=== PATIENT | male | born 1945 | race Caucasian/White ===

== ENCOUNTER 2018-05-11 15:25 | Inpatient (IN) ==
[2018-05-11] MEDS ORDERED: Adenosine Inj 6 MG/2 ML Syringe IV.PUSH ONE ×2 (15:56→15:57)
--- NOTE | 2018-05-11 16:10 | ED ---
HPI General Chief Complaint: Chest Pain Stated Complaint: Incrased heart rate Time Seen by Provider: 05/11/18 15:46 Source: patient and family Mode of arrival: wheelchair Limitations: no limitations History of Present Illness HPI narrative: 73-year-old male the presents to the ED for evaluation of rapid heart rate. Patient apparently took his pulse today and it was very high. He called his doctor Dr. Trevizo and put him on the office. He has significant history of A. fib and RVR. Per patient he has no chest pain or shortness of breath. Per patient he has no symptoms. Apparently when he went to Dr. Saravia office to check his heart rate he was in SVT of 180. Patient was told to come here for evaluation. Patient currently denies any symptoms. He is on the monitor and his heart rate is in the 180s continuously. He states that he has had multiple ablations in the past. He follows with in the [facility] as well to help with his rhythm. Per patient currently he is in no medication other than Eliquis. He was discontinued from his metoprolol as the thought that he did not need anymore. Per patient this was sometime ago. Per patient he is always hypotensive. No other medical issues. Related Data Home Medications Medication Instructions Recorded Confirmed apixaban [Eliquis] 5 mg PO BID 05/11/18 05/11/18 omeprazole magnesium [Prilosec OTC] 20 mg PO DAILY 05/11/18 05/11/18 Allergies Allergy/AdvReac Type Severity Reaction Status Date / Time No Known Allergies Allergy Verified 05/11/18 17:15 Review of Systems ROS: all other systems reviewed are negative PMFSH History History Provided By: Patient and Family Member Medical History Medical History Afib (Acute) Fluttering heart (Acute) Tachycardia (Acute) Surgical History Surgical History S/P ablation of atrial fibrillation (Acute) Family History Family History Other Osteoarthritis Social History Social History Substance History: No History of Abuse Second Hand Smoke Exposure: No Smoking Status: Never smoker How Often Do You Have a Drink Containing Alcohol: Monthly or less Recent Travel in [facility] within the Last 8 Weeks: No Recent Out of Country Travel within the Last 8 Weeks: No Exam Narrative Exam Narrative: GENERAL: Well-appearing SKIN: Focused skin assessment warm/dry. HEAD: Atraumatic. Normocephalic. EYES: Pupils equal and round. No scleral icterus. No injection or drainage. ENT: No nasal bleeding or discharge. Mucous membranes pink and moist. Tongue is midline. No uvula deviation. NECK: Trachea midline. No JVD. CARDIOVASCULAR: Tachycardic rate and rhythm. No murmur appreciated. RESPIRATORY: No accessory muscle use. Clear to auscultation. Breath sounds equal bilaterally. GASTROINTESTINAL: Abdomen soft, non-tender, nondistended. Hepatic and splenic margins not palpable. MUSCULOSKELETAL: No obvious deformities. No clubbing. No cyanosis. No edema. Full range of motion of the upper and lower extremities bilaterally. 2+ pulses bilaterally. NEUROLOGICAL: Awake and alert. No obvious cranial nerve deficits. Motor grossly within normal limits. Normal speech. PSYCHIATRIC: Appropriate mood and affect; insight and judgment normal. Course Initial Documented Vital Signs Pulse Rate 92 H 05/11/18 15:31 Respiratory Rate 18 05/11/18 15:31 Blood Pressure 114/67 05/11/18 15:31 Pulse Oximetry 99 05/11/18 15:31 Last Documented Vital Signs Temperature 98.1 F 05/11/18 17:02 Pulse Rate 170 H 05/11/18 17:12 Respiratory Rate 16 05/11/18 16:21 Blood Pressure 95/51 L 05/11/18 16:21 Pulse Oximetry 98 05/11/18 17:13 Critical Care Time Critical Care Time: Yes Total Critical Care Time: 31 Attestation: Aggregate critical care time was 31 minutes. Time to perform other separately billable procedures was not included in the critical care time. My time did not include minutes spent treating any other patients simultaneously or on activities that did not directly contribute to the patient's treatment. The services I provided to this patient were to treat and/or prevent clinically significant deterioration that could result in: AK, shock, I provided critical care services requiring my management, as noted below: Chart data review, documentation time, medication orders and management, vital sign assessments/reviewing monitor data, ordering and reviewing lab tests, ordering and interpreting/reviewing x-rays and diagnostic studies, care of the patient and discussion of the patient with the admitting physicians. Medical Decision Making ERWIN Attestation ERWIN supervised visit: Yes Attestation: I, Dr. bell, have reviewed the advance practice practitioner's documentation and am in agreement, met with the patient face to face, made the diagnosis, and the medical decision making was done by me. *My assessment and Findings: 73 y/o male presents with tachycardia in the 180s that appeared to be SVT. With adenosine it looks more a flutter. He was given 10 of Cardizem given after the adenosine his heart rate went back up and that helped lower his heart rate into the 130s. If his blood pressure stays stable will repeat another 10 of Cardizem and placed on a Cardizem drip. He will need to be admitted for further care after initial testing. I was at bedside for administration of adenosine and initial Cardizem MDM Narrative Medical decision making narrative: Patient tolerated procedure well but unfortunately his heart rate continued in the 180s 160s. She was given 6 mg of adenosine IV.73-year-old male the presents to the ED for evaluation of tachycardia. Patient was properly examined and was found to have signs and symptoms initially what appeared to be SVT in the 180s. EKG was done here and did show what appears to be SVT. Labs and imaging were ordered. I had my attending Dr. Bell immediately evaluate the patient. She agrees to give adenosine 6 mg. This was given with the patient on the monitor and pads put in place on his chest. Adenosine unfortunately not work. Patient heart rate did improve a little bit into the 160s but with the end of the EKG and it showed that his heart rate appears to be more A. fib RVR. Patient was given Cardizem with improvement of symptoms and tachyarrhythmia. He was given another dose of Cardizem 10 mg. He was put on the drip. Labs and imaging were essentially unremarkable other than for elevated troponin. This time recommendations for admission for further evaluation and treatment. Patient agrees with this plan. Case discussed with Dr. Tan by my attending who agrees that patient can be admitted to his service. Medical Screen Exam Complete: Yes Emergency Medical Condition: Yes Differential Diagnosis Differential Diagnosis: SVT versus atrial fibrillation RVR versus arrhythmia versus chest pain versus ACS Medical Records Medical records reviewed: Yes I reviewed the patient's medical records. Lab Data Lab results reviewed: Yes I reviewed the patient's lab results. Lab results narrative: Troponin elevated Result diagrams: 05/11/18 16:05 05/11/18 16:05 Lab Results 05/11/18 05/11/18 05/11/18 Range/Units 16:05 16:05 16:05 WBC 7.9 (4.0-11.0) th/mm3 RBC 5.49 (4.50-5.90) mil/mm3 Hgb 15.6 (13.0-17.0) gm/dL Hct 47.1 (39.0-51.0) % MCV 85.6 (80.0-100.0) fL MCH 28.5 (27.0-34.0) pg MCHC 33.3 (32.0-36.0) % RDW 14.2 (11.6-17.2) % Plt Count 190 (150-450) th/mm3 MPV 8.4 (7.0-11.0) fL Neut % (Auto) 56.9 (16.0-70.0) % Lymph % (Auto) 31.9 (9.0-44.0) % [place] % (Auto) 9.6 H (0.0-8.0) % Eos % (Auto) 1.1 (0.0-4.0) % Baso % (Auto) 0.5 (0.0-2.0) % Neut # (Auto) 4.5 (1.8-7.7) th/mm3 Lymph # (Auto) 2.5 (1.0-4.8) th/mm3 [place] # (Auto) 0.8 (0.0-0.9) th/mm3 Eos # (Auto) 0.1 (0.0-0.4) th/mm3 Baso # (Auto) 0.0 (0.0-0.2) th/mm3 WBC Differential . Differential Comment Auto diff final PT 11.1 (9.8-11.6) sec INR 1.1 Ratio APTT 29.1 (24.3-30.1) sec Sodium 138 (136-145) meq/L Potassium 4.0 (3.5-5.1) meq/L Chloride 105 (98-107) meq/L Carbon Dioxide 26.2 (21.0-32.0) meq/L Anion Gap 7 (5-15) meq/L BUN 13 (7-18) mg/dL Creatinine 1.02 (0.60-1.30) mg/dL Estimated GFR 72 L (>89) mL/min Random Glucose 94 (74-106) mg/dL Calcium 8.6 (8.5-10.1) mg/dL Magnesium 2.1 (1.5-2.5) mg/dL Total Bilirubin 0.6 (0.2-1.0) mg/dL AST 19 (15-37) U/L ALT 22 (12-78) U/L Alkaline Phosphatase 94 (45-117) U/L Total Creatine Kinase 61 (39-308) U/L Troponin I 0.14 H (0.02-0.05) ng/mL Total Protein 7.0 (6.4-8.2) g/dL Albumin 3.6 (3.4-5.0) g/dL Imaging Data Attestation: I personally reviewed and interpreted this imaging study as follows : Radiologist's impression: Chest X-Ray 05/11/18 16:05 CONCLUSION: 1. No acute intrathoracic abnormality. 2. Old right posterior fourth rib fracture. ECG Data Attestation: I personally reviewed and interpreted this ECG as follows: Interpretation: EKG initially showed SVT and the heart rates in the 180s. Second EKG show what appears to be atrial fibrillation with RVR with a ventricular rate of 138 bpm. No sign of ST elevation or ischemia at this time. Discharge Plan Physicians Team ED Provider: Kassie Bell ED Midlevel Provider: Yusuf Wilhelm Primary Care Provider: Deandre Soliz Rxs /Orders / Referrals /Forms Prescriptions: No Action omeprazole magnesium [Prilosec OTC] 20 mg Tablet,Delayed Release (Dr/Ec) 20 mg PO DAILY RF: 0 apixaban [Eliquis] 5 mg Tablet 5 mg PO BID RF: 0 Discharge Interventions Interventions: Vital Signs Last Done: 05/11/18 15:53 Status ED Status: Admitted Patient
[2018-05-11] MEDS ORDERED: dilTIAZem Inj 125 MG in Sodium Chlor 0.9% Inj 100 ML IV.CONT PRN (16:12)
[2018-05-11 16:38] LABS: Baso % (Auto) 0.5 % (0.0-2.0); Eos # (Auto) 0.1 th/mm3 (0.0-0.4); Eos % (Auto) 1.1 % (0.0-4.0); Hematocrit 47.1 % (39.0-51.0); Hemoglobin 15.6 gm/dL (13.0-17.0); Lymph # (Auto) 2.5 th/mm3 (1.0-4.8); Lymph % (Auto) 31.9 % (9.0-44.0); Mean Corpuscular HGB Conc 33.3 % (32.0-36.0); Mean Corpuscular Hemoglobin 28.5 pg (27.0-34.0); Mean Corpuscular Volume 85.6 fL (80.0-100.0); Mean Platelet Volume 8.4 fL (7.0-11.0); Mono # (Auto) 0.8 th/mm3 (0.0-0.9); Mono % (Auto) 9.6 % (0.0-8.0); Neut # (Auto) 4.5 th/mm3 (1.8-7.7); Neut % (Auto) 56.9 % (16.0-70.0); Platelet Count 190 th/mm3 (150-450); Red Blood Count 5.49 mil/mm3 (4.50-5.90); Red Cell Distribution Width 14.2 % (11.6-17.2); White Blood Count 7.9 th/mm3 (4.0-11.0)
--- NOTE | 2018-05-11 16:43 | XR ---
EXAM DATE: 05/11/2018 4:05 PM EDT AGE/SEX: 73 years / Male INDICATIONS: Elevated heart rate. CLINICAL DATA: This is the patient's initial encounter. Patient reports that signs and symptoms have been present for 1 day and indicates a pain score of 0/10. MEDICAL/SURGICAL HISTORY: . A-fib. . Heart ablations. COMPARISON: [facility] [place], CHEST SINGLE AP, 08/30/2015. . FINDINGS: 2 portable frontal views of the chest show the heart to be normal in size. No pulmonary mass. Lungs a re clear. No infiltrate, effusion, or pneumothorax. Bony structures and old right posterior fourth ri b fracture. Some callus formation noted. CONCLUSION: 1. No acute intrathoracic abnormality. 2. Old right posterior fourth rib fracture. Electronically signed by: Gavin Jiang MD 05/11/2018 4:42 PM EDT
[2018-05-11 16:48] LABS: Activated Partial Thrombo Time 29.1 sec (24.3-30.1); INR 1.1 Ratio; Prothrombin Time 11.1 sec (9.8-11.6)
[2018-05-11 16:55] LABS: Alanine Aminotransferase 22 U/L (12-78); Albumin 3.6 g/dL (3.4-5.0); Anion Gap 7 meq/L (5-15); Aspartate Aminotransferase 19 U/L (15-37); Blood Urea Nitrogen 13 mg/dL (7-18); Calcium 8.6 mg/dL (8.5-10.1); Carbon Dioxide 26.2 meq/L (21.0-32.0); Chloride 105 meq/L (98-107); Glomerular Filtration Rate 72 mL/min (>89); Glucose,Random 94 mg/dL (74-106); Magnesium 2.1 mg/dL (1.5-2.5); Sodium 138 meq/L (136-145)
[2018-05-11 16:59] LABS: Alkaline Phosphatase 94 U/L (45-117); Troponin I 0.14 ng/mL (0.02-0.05)
[2018-05-11 17:05] LABS: Creatine Kinase 61 U/L (39-308)
--- NOTE | 2018-05-11 17:28 | P.HPIM ---
History of Present Illness Primary Care Physician: PROVIDER NON STAFF History of Present Illness: Mr. Bonilla is a 73-year-old male. He has a past history of multiple episodes of A. fib RVR. He has had approximately 7 ablations in the past. He says the most recent ablation was working well but this morning he noticed some tachycardia symptoms which for him is just a flutter. No shortness of breath, no chest pain, no dizziness. He checked his pulse and it was rapid going from 160-180. He denies any nausea vomiting or chest pain. Cardizem is provided in the ER via a bolus and this only worked temporarily. Cardizem drip is being initiated. No other complaints from the patient tonight. - Diagnosis (1) Atrial fibrillation with RVR Inpatient Certification: I certify that the inpatient services were ordered in accordance with Medicare regulations governing the order. This includes certification that hospital inpatient services are reasonable and necessary and in the case of services not specified as inpatient-only under 42 CFR 419.22(n), that they are appropriately provided as inpatient services in accordance to with the 2-midnight benchmark under 43 CFR 412.3(e) Estimated Total Length of Stay (Days): 2 Plans for Post Hospital Care: Home Review of Systems Constitutional: No fevers, no chills no night sweats, no fatigue, no weakness Eyes: No eye pain, no blurry vision, no loss of vision ENT: No sore throat, no ear pain, no rhinorrhea Cardiovascular: No chest pain, tachycardia, palpitations, no shortness of breath , no syncope Respiratory: No wheezing, no cough, no shortness of breath Gastrointestinal: No abdominal pain, no black tarry stools, no bright red blood per rectum, no vomiting, no diarrhea Musculoskeletal: No joint pain, no muscle cramps, no stiffness Integumentary: No rash, no ulcers, no drainage Neurologic: No sensory loss, no loss of motor function, no dizziness Psychiatric: No behavioral changes, no hallucinations, no suicidal ideations PMFSH - History History Provided By: Patient - Medical History Medical History: Medical History (Last Reviewed 05/11/18 @ 17:32 by GURU Gallardo) Afib Fluttering heart Tachycardia - Surgical History Surgical History: Surgical History (Last Reviewed 05/11/18 @ 17:32 by GURU Gallardo) S/P ablation of atrial fibrillation - Family History Family History: Family History (Last Updated 05/11/18 @ 17:26 by Leo Tan MD) Other Osteoarthritis - Tobacco History Second Hand Smoke Exposure: No Smoking Status: Never smoker - Alcohol History How Often Do You Have a Drink Containing Alcohol: Monthly or less - Substance Use History Substance History: No History of Abuse - Travel History Recent Travel in the [place] Within the Last 8 Weeks: No Recent Travel Out of the Country Within the Last 8 Weeks: No - Immunization History Tetanus Immunization: Unsure Medications and Allergies Active Medications: Active Medications Al Hydroxide/Mg Hydroxide (Milk Of Mark Liq) 30 ml PO Q12H PRN PRN Reason: Mild Constipation Apixaban (Eliquis) 5 mg PO BID BILLIE Diltiazem HCl 125 mg/ Sodium (Chloride) 125 mls @ 5 mls/hr IV.CONT TITRATE PRN ; Protocol PRN Reason: Per Protocol Sodium Chloride (Ns Inj) 1,000 mls @ 75 mls/hr IV.CONT .[id number] BILLIE Nitroglycerin (Nitrostat Sl) 0.4 mg SL Q5M PRN PRN Reason: CHEST PAIN Ondansetron HCl (Zofran Inj) 4 mg IV.PUSH Q6H PRN PRN Reason: NAUSEA OR VOMITING Sodium Chloride (Ns Flush) 2 ml IV.FLUSH UNSCH PRN PRN Reason: FLUSH AFTER USING IV ACCESS Allergies Allergy/AdvReac Type Severity Reaction Status Date / Time No Known Allergies Allergy Verified 05/11/18 17:15 Home Medications Medication Instructions Recorded Confirmed Type apixaban [Eliquis] 5 mg PO BID 05/11/18 05/11/18 History omeprazole magnesium [Prilosec OTC] 20 mg PO DAILY 05/11/18 05/11/18 History Exam Vital signs: Vital Signs 05/11/18 15:31 05/11/18 15:53 05/11/18 16:00 Temperature Pulse Rate 92 H 186 H 165 H Respiratory Rate 18 18 Blood Pressure 114/67 185/114 H Pulse Oximetry 99 98 05/11/18 16:06 05/11/18 16:11 05/11/18 16:21 Temperature Pulse Rate 61 132 H 91 H Respiratory Rate 16 16 16 Blood Pressure 110/64 115/59 L 95/51 L Pulse Oximetry 98 97 94 L 05/11/18 17:02 05/11/18 17:12 05/11/18 17:13 Temperature 98.1 F Pulse Rate 170 H Respiratory Rate Blood Pressure Pulse Oximetry 98 Intake & Output 05/10/18 05/11/18 05/11/18 18:59 06:59 18:59 Weight 101.151 kg Narrative: GENERAL: NAD, A&Ox3 HEAD: Normocephalic. NECK: Supple, trachea midline. No lymphadenopathy. EYES: No scleral icterus. No injection or drainage. CARDIOVASCULAR: Tachycardia, irregularly irregular rhythm without murmurs, gallops, or rubs. RESPIRATORY: Breath sounds equal bilaterally. No accessory muscle use. GASTROINTESTINAL: Abdomen soft, non-tender, nondistended. MUSCULOSKELETAL: No cyanosis, or edema. SKIN: Warm and dry. NEURO: No focal neurological deficits. Results - Labs CBC & Chem 7: 05/11/18 16:05 05/11/18 16:05 Labs: Short CBC 05/11/18 Range/Units 16:05 WBC 7.9 (4.0-11.0) th/mm3 Hgb 15.6 (13.0-17.0) gm/dL Hct 47.1 (39.0-51.0) % Plt Count 190 (150-450) th/mm3 BMP 05/11/18 16:05 Sodium 138 Potassium 4.0 Chloride 105 Carbon Dioxide 26.2 BUN 13 Creatinine 1.02 Calcium 8.6 Cardiac Enzymes 05/11/18 Range/Units 16:05 Total Creatine Kinase 61 (39-308) U/L Troponin I 0.14 H (0.02-0.05) ng/mL Liver Function 05/11/18 Range/Units 16:05 Total Bilirubin 0.6 (0.2-1.0) mg/dL AST 19 (15-37) U/L ALT 22 (12-78) U/L Alkaline Phosphatase 94 (45-117) U/L Albumin 3.6 (3.4-5.0) g/dL - Imaging Impressions Chest X-Ray 05/11/18 16:05 CONCLUSION: 1. No acute intrathoracic abnormality. 2. Old right posterior fourth rib fracture. Caprini VTE Risk Assessment Caprini VTE Risk Assessment: Moderate/High Risk (score >= 2) Caprini Risk Assessment Model: Point Value = 1 Point Value = 2 Point Value = 3 Point Value = 5 Age 41-60 Minor surgery BMI > 25 kg/m2 Swollen legs Varicose veins or History of unexplained or recurrent spontaneous Oral contraceptives or hormone replacement Sepsis (< 1 month) Serious lung disease, including pneumonia (< 1 month) Abnormal pulmonary function Acute myocardial infarction Congestive heart failure (< 1 month) History of inflammatory bowel disease Medical patient at bed rest Age 61-74 Arthroscopic surgery Major open surgery (> 45 min) Laparoscopic surgery (> 45 min) Malignancy Confined to bed (> 72 hours) Immobilizing plaster cast Central venous access Age >= 75 History of VTE Family history of VTE Factor V Leiden Prothrombin [id number] Lupus anticoagulant Anticardiolipin antibodies Elevated serum homocysteine Heparin-induced thrombocytopenia Other congenital or acquired thrombophilia Stroke (< 1 month) Elective arthroplasty Hip, pelvis, or leg fracture Acute spinal cord injury (< 1 month) Prophylaxis Regimen: Total Risk Factor Score Risk Level Prophylaxis Regimen 0-1 Low Early ambulation 2 Moderate Order ONE of the following: *Sequential Compression Device (SCD) *Heparin 5000 units SQ BID 3-4 Higher Order ONE of the following medications: *Heparin 5000 units SQ TID *Enoxaparin/Lovenox 40 mg SQ daily (WT < 150 kg, CrCl > 30 mL/min) *Enoxaparin/Lovenox 30 mg SQ daily (WT < 150 kg, CrCl > 10-29 mL/min) *Enoxaparin/Lovenox 30 mg SQ BID (WT < 150 kg, CrCl > 30 mL/min) AND/OR *Sequential Compression Device (SCD) 5 or more Highest Order ONE of the following medications: *Heparin 5000 units SQ TID (Preferred with Epidurals) *Enoxaparin/Lovenox 40 mg SQ daily (WT < 150 kg, CrCl > 30 mL/min) *Enoxaparin/Lovenox 30 mg SQ daily (WT < 150 kg, CrCl > 10-29 mL/min) *Enoxaparin/Lovenox 30 mg SQ BID (WT < 150 kg, CrCl > 30 mL/min) AND *Sequential Compression Device (SCD) Assessment and Plan - Assessment (1) Atrial fibrillation with RVR Code(s): I48.91 - Unspecified atrial fibrillation Status: Acute - Plan 73-year-old male admitted secondary to A. fib RVR A. fib RVR chronic atrial fibrillation Cardizem IV drip initiated as a treatment. Continue Eliquis Follow troponins Follow creatine kinase Serial EKGs Follow on telemetry Cardiology consulted Gastroesophageal reflux disease PPI on hold for now Follow clinically DVT prophylaxis Eliquis
[2018-05-11] MEDS: Sod Chloride 0.9% Inj 1,000 ML IV.CONT SCH (17:36)
[2018-05-11] MEDS ORDERED: Heparin - SQ 10,000 UNITS/ML Vial SQ SCH (21:00)
[2018-05-11 23:05] LABS: Troponin I 0.21 ng/mL (0.02-0.05)
[2018-05-12 04:38] LABS: Troponin I 0.2 ng/mL (0.02-0.05)
[2018-05-12] MEDS: Sod Chloride 0.9% Inj 1,000 ML IV.CONT SCH (08:47)
[2018-05-12] MEDS: dilTIAZem CD 120 MG Capsule PO SCH (09:18)
[2018-05-12] MEDS: Pantoprazole Sodium 20 MG DR Tablet PO SCH ×2 (09:56→21:29)
--- NOTE | 2018-05-12 10:20 | P.PNIM ---
Subjective Interval history: Patient had returned to sinus rhythm overnight. Due to low blood pressures Cardizem drip had to be stopped at approximately 4 AM. Is resumed on p.o. Cardizem at approximately 9 AM. When the patient walked to use the bathroom he had a recurrence of A. fib RVR. This has resolved by the time I am seeing him this morning. No complaints from patient. Physical Exam Vital signs: Vital Signs 05/11/18 15:31 05/11/18 15:53 05/11/18 16:00 Temperature Pulse Rate 92 H 186 H 165 H Respiratory Rate 18 18 Blood Pressure 114/67 185/114 H Pulse Oximetry 99 98 05/11/18 16:06 05/11/18 16:11 05/11/18 16:21 Temperature Pulse Rate 61 132 H 91 H Respiratory Rate 16 16 16 Blood Pressure 110/64 115/59 L 95/51 L Pulse Oximetry 98 97 94 L 05/11/18 17:02 05/11/18 17:12 05/11/18 17:13 Temperature 98.1 F Pulse Rate 170 H Respiratory Rate Blood Pressure Pulse Oximetry 98 05/11/18 17:36 05/11/18 18:26 05/11/18 19:15 Temperature Pulse Rate 123 H 144 H 92 H Respiratory Rate 18 18 18 Blood Pressure 110/57 L 113/63 104/59 L Pulse Oximetry 99 97 99 05/11/18 19:53 05/11/18 20:00 05/12/18 00:00 Temperature 98.1 F 98.1 F Pulse Rate 120 H 91 H 90 Respiratory Rate 16 16 Blood Pressure 104/58 L 91/57 L 103/57 L Pulse Oximetry 98 98 05/12/18 03:30 05/12/18 04:00 05/12/18 07:00 Temperature 98.1 F 97.7 F Pulse Rate 90 91 H Respiratory Rate 16 16 Blood Pressure 97/52 L 104/57 L 109/60 Pulse Oximetry 98 97 05/12/18 07:57 05/12/18 08:00 05/12/18 09:00 Temperature Pulse Rate 135 H 166 H 120 H Respiratory Rate Blood Pressure Pulse Oximetry 98 Intake & Output 05/11/18 05/12/18 05/12/18 18:59 06:59 18:59 Intake Total 840 / 840 1062.1 / 1062.1 Output Total 560 / 560 Balance 280 / 280 1062.1 / 1062.1 Weight 101.151 kg 101 kg Intake: IV 1062.1 / 1062.1 NS Inj 1,000 ML @ 75 mls/hr IV. 937.1 / 937.1 CONT .[id number] [facility] Rx#:[id number] Cardizem Inj 125 MG In NS Inj 125 / 125 100 ML @ 5 MG/HR 5 mls/hr IV. CONT TITRATE PRN Rx#:[id number] Oral 840 / 840 Output: Urine 560 / 560 Other: Date of Last Bowel Movement 05/10/18 05/11/18 Narrative: GENERAL: NAD, A&Ox3 HEAD: Normocephalic. NECK: Supple, trachea midline. No lymphadenopathy. EYES: No scleral icterus. No injection or drainage. CARDIOVASCULAR: Tachycardia, irregularly irregular rhythm without murmurs, gallops, or rubs. RESPIRATORY: Breath sounds equal bilaterally. No accessory muscle use. GASTROINTESTINAL: Abdomen soft, non-tender, nondistended. MUSCULOSKELETAL: No cyanosis, or edema. SKIN: Warm and dry. NEURO: No focal neurological deficits. Results - Labs CBC & Chem 7: 05/11/18 16:05 05/11/18 16:05 Laboratory Results - last 24 hr 05/11/18 05/11/18 05/11/18 16:05 16:05 16:05 WBC 7.9 RBC 5.49 Hgb 15.6 Hct 47.1 MCV 85.6 MCH 28.5 MCHC 33.3 RDW 14.2 Plt Count 190 MPV 8.4 Neut % (Auto) 56.9 Lymph % (Auto) 31.9 [place] % (Auto) 9.6 H Eos % (Auto) 1.1 Baso % (Auto) 0.5 Neut # (Auto) 4.5 Lymph # (Auto) 2.5 [place] # (Auto) 0.8 Eos # (Auto) 0.1 Baso # (Auto) 0.0 WBC Differential . Differential Comment Auto diff final PT 11.1 INR 1.1 APTT 29.1 Sodium 138 Potassium 4.0 Chloride 105 Carbon Dioxide 26.2 Anion Gap 7 BUN 13 Creatinine 1.02 Estimated GFR 72 L Random Glucose 94 Calcium 8.6 Magnesium 2.1 Total Bilirubin 0.6 AST 19 ALT 22 Alkaline Phosphatase 94 Total Creatine Kinase 61 Troponin I 0.14 H Total Protein 7.0 Albumin 3.6 05/11/18 05/12/18 22:13 03:47 WBC RBC Hgb Hct MCV MCH MCHC RDW Plt Count MPV Neut % (Auto) Lymph % (Auto) [place] % (Auto) Eos % (Auto) Baso % (Auto) Neut # (Auto) Lymph # (Auto) [place] # (Auto) Eos # (Auto) Baso # (Auto) WBC Differential Differential Comment PT INR APTT Sodium Potassium Chloride Carbon Dioxide Anion Gap BUN Creatinine Estimated GFR Random Glucose Calcium Magnesium Total Bilirubin AST ALT Alkaline Phosphatase Total Creatine Kinase 53 44 Troponin I 0.21 H 0.20 H Total Protein Albumin - Imaging Impressions Chest X-Ray 05/11/18 16:05 CONCLUSION: 1. No acute intrathoracic abnormality. 2. Old right posterior fourth rib fracture. Assessment and Plan - Assessment (1) Atrial fibrillation with RVR Code(s): I48.91 - Unspecified atrial fibrillation Status: Acute - Plan 73-year-old male admitted secondary to A. fib RVR Rate controlled when seen. Recurrence of A. fib RVR with ambulation this morning (off of Cardizem at that time). A. fib RVR chronic atrial fibrillation Physician from IV Cardizem to p.o. Cardizem this morning Continue Eliquis Follow troponins Follow creatine kinase Serial EKGs Follow on telemetry Cardiology following Gastroesophageal reflux disease PPI on hold for now Follow clinically DVT prophylaxis Eliquis
--- NOTE | 2018-05-12 11:20 | P.CONCA ---
History of Present Illness Service: Cardiliogy Consult date: 05/12/18 Reason for Consult: Afib RVR Primary Care Provider: Deandre Soliz MD, PhD History of Present Illness: Pleasant 73-year-old male presented to our office yesterday for an urgent visit with complaints of a rapid heart rate. Patient is well-known to our practice he has a history of atrial fibrillation and atrial flutter with multiple ablations in the past, most recent ablation was August [address] Vega. Patient also has history of SVT, cardiomyopathy, hypertension, hyperlipidemia, COPD, GERD, and Ortiz's esophagus. Upon initial evaluation in office yesterday patient's heart rate was greater than 150, he was asymptomatic at the time, and was sent directly to the emergency room. Upon exam today patient denies any chest pain or shortness of breath. His Cardizem drip was discontinued overnight due to low blood pressures. He had converted to sinus rhythm, until this morning when he got up and walked to the bathroom he briefly went back into A. fib RVR rate went up as high as 190 per the nurse, currently telemetry reveals A. fib with a rate of 120, patient was given his first dose of p.o. Cardizem at 9 AM. Review of Systems All other systems reviewed negative except as stated in HPI PMFSH - History History Provided By: Patient - Medical History Medical History: Medical History (Last Reviewed 05/11/18 @ 17:32 by GURU Gallardo) Afib Fluttering heart Tachycardia - Surgical History Surgical History: Surgical History (Last Reviewed 05/11/18 @ 17:32 by GURU Gallardo) S/P ablation of atrial fibrillation - Family History Family History: Family History (Last Reviewed 05/11/18 @ 17:32 by GURU Gallardo) Other Osteoarthritis - Tobacco History Second Hand Smoke Exposure: No Smoking Status: Never smoker - Alcohol History How Often Do You Have a Drink Containing Alcohol: Monthly or less - Substance Use History Substance History: No History of Abuse - Travel History Recent Travel in the [place] Within the Last 8 Weeks: No Recent Travel Out of the Country Within the Last 8 Weeks: No - Immunization History Tetanus Immunization: Unsure Medications and Allergies Allergies Allergy/AdvReac Type Severity Reaction Status Date / Time No Known Allergies Allergy Verified 05/11/18 17:15 Home Medications Medication Instructions Recorded Confirmed Type apixaban [Eliquis] 5 mg PO BID 05/11/18 05/11/18 History omeprazole magnesium [Prilosec OTC] 20 mg PO DAILY 05/11/18 05/11/18 History Active Medications: Active Medications Al Hydroxide/Mg Hydroxide (Milk Of Magnesia Liq) 30 ml PO Q12H PRN PRN Reason: Mild Constipation Apixaban (Eliquis) 5 mg PO BID [facility] Last Admin: 05/12/18 08:54 Dose: 5 mg Diltiazem HCl (Cardizem Cd 24hr) 120 mg PO DAILY [facility] Last Admin: 05/12/18 09:18 Dose: 120 mg Sodium Chloride (Ns Inj) 1,000 mls @ 75 mls/hr IV.CONT .[id number] [facility] Last Infusion: 05/12/18 08:47 Dose: Infused Nitroglycerin (Nitrostat Sl) 0.4 mg SL Q5M PRN PRN Reason: CHEST PAIN Ondansetron HCl (Zofran Inj) 4 mg IV.PUSH Q6H PRN PRN Reason: NAUSEA OR VOMITING Pantoprazole Sodium (Protonix) 20 mg PO BID [facility] Last Admin: 05/12/18 09:56 Dose: 20 mg Sodium Chloride (Ns Flush) 2 ml IV.FLUSH UNSCH PRN PRN Reason: FLUSH AFTER USING IV ACCESS Last Admin: 05/12/18 08:55 Dose: 2 ml Exam Vital signs: Vital Signs 05/11/18 15:31 05/11/18 15:53 05/11/18 16:00 Temperature Pulse Rate 92 H 186 H 165 H Respiratory Rate 18 18 Blood Pressure 114/67 185/114 H Pulse Oximetry 99 98 05/11/18 16:06 05/11/18 16:11 05/11/18 16:21 Temperature Pulse Rate 61 132 H 91 H Respiratory Rate 16 16 16 Blood Pressure 110/64 115/59 L 95/51 L Pulse Oximetry 98 97 94 L 05/11/18 17:02 05/11/18 17:12 05/11/18 17:13 Temperature 98.1 F Pulse Rate 170 H Respiratory Rate Blood Pressure Pulse Oximetry 98 05/11/18 17:36 05/11/18 18:26 05/11/18 19:15 Temperature Pulse Rate 123 H 144 H 92 H Respiratory Rate 18 18 18 Blood Pressure 110/57 L 113/63 104/59 L Pulse Oximetry 99 97 99 05/11/18 19:53 05/11/18 20:00 05/12/18 00:00 Temperature 98.1 F 98.1 F Pulse Rate 120 H 91 H 90 Respiratory Rate 16 16 Blood Pressure 104/58 L 91/57 L 103/57 L Pulse Oximetry 98 98 05/12/18 03:30 05/12/18 04:00 05/12/18 07:00 Temperature 98.1 F 97.7 F Pulse Rate 90 91 H Respiratory Rate 16 16 Blood Pressure 97/52 L 104/57 L 109/60 Pulse Oximetry 98 97 05/12/18 07:57 05/12/18 08:00 05/12/18 09:00 Temperature Pulse Rate 135 H 166 H 120 H Respiratory Rate Blood Pressure Pulse Oximetry 98 05/12/18 10:00 Temperature Pulse Rate 122 H Respiratory Rate Blood Pressure Pulse Oximetry Intake & Output 05/11/18 05/12/18 05/12/18 18:59 06:59 18:59 Intake Total 840 / 840 1062.1 / 1062.1 Output Total 560 / 560 Balance 280 / 280 1062.1 / 1062.1 Weight 101.151 kg 101 kg Intake: IV 1062.1 / 1062.1 NS Inj 1,000 ML @ 75 mls/hr IV. 937.1 / 937.1 CONT .[id number] [facility] Rx#:[id number] Cardizem Inj 125 MG In NS Inj 125 / 125 100 ML @ 5 MG/HR 5 mls/hr IV. CONT TITRATE PRN Rx#:[id number] Oral 840 / 840 Output: Urine 560 / 560 Other: Date of Last Bowel Movement 05/10/18 05/11/18 - Constitutional no acute distress, cooperative - Routine HEENT Exam Head: Present: normocephalic, atraumatic Eye: Present: PERRL, normal accommodation ENT: Present: mucous membranes moist - Routine Neck Exam Present: supple, trachea midline - Routine Respiratory Exam Present: CTA bilaterally - Routine Cardiovascular Exam Present: tachycardia, irregularly irregular - Routine Abdominal Exam Present: soft - Routine Skin Exam Present: intact, normal turgor - Routine Neurological Exam Present: alert, oriented X3 Results 05/11/18 16:05 05/11/18 16:05 Cardiac Enzymes 05/11/18 05/11/18 05/12/18 Range/Units 16:05 22:13 03:47 AST 19 (15-37) U/L Troponin I 0.14 H 0.21 H 0.20 H (0.02-0.05) ng/mL Coagulation 05/11/18 Range/Units 16:05 PT 11.1 (9.8-11.6) sec APTT 29.1 (24.3-30.1) sec CBC 05/11/18 Range/Units 16:05 WBC 7.9 (4.0-11.0) th/mm3 RBC 5.49 (4.50-5.90) mil/mm3 Hgb 15.6 (13.0-17.0) gm/dL Hct 47.1 (39.0-51.0) % Plt Count 190 (150-450) th/mm3 Neut # (Auto) 4.5 (1.8-7.7) th/mm3 Lymph # (Auto) 2.5 (1.0-4.8) th/mm3 [place] # (Auto) 0.8 (0.0-0.9) th/mm3 Eos # (Auto) 0.1 (0.0-0.4) th/mm3 Baso # (Auto) 0.0 (0.0-0.2) th/mm3 Comprehensive Metabolic Panel 05/11/18 Range/Units 16:05 Sodium 138 (136-145) meq/L Potassium 4.0 (3.5-5.1) meq/L Chloride 105 (98-107) meq/L Carbon Dioxide 26.2 (21.0-32.0) meq/L BUN 13 (7-18) mg/dL Creatinine 1.02 (0.60-1.30) mg/dL Calcium 8.6 (8.5-10.1) mg/dL AST 19 (15-37) U/L ALT 22 (12-78) U/L Alkaline Phosphatase 94 (45-117) U/L Total Protein 7.0 (6.4-8.2) g/dL Albumin 3.6 (3.4-5.0) g/dL Intake and Output 05/11/18 05/12/18 05/12/18 22:59 06:59 14:59 Intake Total 360 / 360 480 / 480 1062.1 / 1062.1 Output Total 560 / 560 Balance 360 / 360 -80 / -80 1062.1 / 1062.1 Intake: IV 1062.1 / 1062.1 NS Inj 1,000 ML @ 75 mls/hr IV. 937.1 / 937.1 CONT .[id number] [facility] Rx#:[id number] Cardizem Inj 125 MG In NS Inj 125 / 125 100 ML @ 5 MG/HR 5 mls/hr IV. CONT TITRATE PRN Rx#:[id number] Oral 360 / 360 480 / 480 Output: Urine 560 / 560 Other: Date of Last Bowel Movement 05/10/18 05/10/18 05/11/18 Weight 101.151 kg 101 kg - Imaging and Cardiology Imaging: Impressions Chest X-Ray 05/11/18 16:05 CONCLUSION: 1. No acute intrathoracic abnormality. 2. Old right posterior fourth rib fracture. Assessment and Plan - Plan Assessment Afib RVR Plan Cardizem drip Dc'd overnight due to low BP. Now on PO Cardizem. HR did go up to 190 when ambulating to bathroom this AM. Will plan to resume cardizem drip PRN HR sustained at 140 or greater. Continues on eliquis, no issues with bleeding. The patient was seen and evaluated by Dr. Trevizo who participated in care management and decision making The exam, history, and the medical decision-making described in the above note were completed with the assistance of the mid-level provider. I reviewed and agree with the findings presented. I attest that I had a [id number] encounter with the patient on the same day, and personally performed and documented my assessment and findings in the medical record. Will control rhythm with sotalol. Will watch for proarrhythmia Code Status: Ful Code Discussed Condition With: RN and
[2018-05-12] MEDS ORDERED: Amiodarone Inj 150 MG in Dextrose 5% in Water Inj 97 ML IV.SIG ONE ×2 (12:52)
--- NOTE | 2018-05-12 20:13 | ECG ---
Date Performed: 05/11/2018 Time Performed: 15:41:52 PTAGE: 73 years EKG: SUPRAVENTRICULAR TACHYCARDIA MINIMAL ST DEPRESSION ABNORMAL RHYTHM ECG INTERPRETATION BASED ON A DEFAULT AGE OF 40 YEARS PREVIOUS TRACING :08/31/2015 @1.04 DOCTOR: Carlitos Trevizo Interpretating Date/Time 05/12/2018 20:12:34
--- NOTE | 2018-05-12 20:15 | ECG ---
Date Performed: 05/11/2018 Time Performed: 16:10:42 PTAGE: 73 years EKG: ATRIAL FIBRILLATION WITH RAPID VENTRICULAR RESPONSE ABNORMAL RHYTHM ECG PREVIOUS TRACING : 05/11/2018 @15.41 Compared to previous tracing, patient is now in atrial fib rillation with rapid ventricular response DOCTOR: Carlitos Trevizo Interpretating Date/Time 05/12/2018 20:13:46
--- NOTE | 2018-05-12 20:19 | ECG ---
Date Performed: 05/11/2018 Time Performed: 23:44:34 PTAGE: 73 years EKG: Sinus rhythm Possible inferior infarct - age undetermined Lateral T wave changes are nonspecific Abnormal ECG PREVIOUS TRACING : 05/11/2018 16.10 Compared to previous tracing, patient has now converted to sinus rhythm DOCTOR: Carlitos Trevizo Interpretating Date/Time 05/12/2018 20:16:58
--- NOTE | 2018-05-12 20:19 | ECG ---
Date Performed: 05/12/2018 Time Performed: 04:30:24 PTAGE: 73 years EKG: Sinus rhythm Normal ECG PREVIOUS TRACING :05/11/2018 @11.44 Compared to previous tracing, patient continues in sinus rh ythm DOCTOR: Carlitos Trevizo Interpretating Date/Time 05/12/2018 20:17:50
[2018-05-13] MEDS: Sod Chloride 0.9% Inj 1,000 ML IV.CONT SCH ×2 (00:45→20:02)
[2018-05-13] MEDS: Pantoprazole Sodium 20 MG DR Tablet PO SCH ×2 (09:27→20:47)
[2018-05-13] MEDS: dilTIAZem CD 120 MG Capsule PO SCH (09:31)
--- NOTE | 2018-05-13 11:44 | P.PN ---
Subjective Interval history: patient wanting to go home no complains telemetry in SR rate in the 90s- up and ambulating Physical Exam Vital signs: Vital Signs 05/12/18 12:00 05/12/18 13:00 05/12/18 14:00 Temperature Pulse Rate 134 H 124 H 136 H Respiratory Rate Blood Pressure Pulse Oximetry 05/12/18 15:00 05/12/18 15:28 05/12/18 16:00 Temperature Pulse Rate 136 H 126 H 126 H Respiratory Rate 16 Blood Pressure 107/63 Pulse Oximetry 97 05/12/18 17:00 05/12/18 17:46 05/12/18 18:00 Temperature Pulse Rate 93 H 92 H Respiratory Rate Blood Pressure Pulse Oximetry 97 05/12/18 19:00 05/12/18 20:00 05/12/18 21:00 Temperature 97.9 F Pulse Rate 94 H 90 91 H Respiratory Rate 16 Blood Pressure 106/68 Pulse Oximetry 96 96 05/12/18 22:00 05/12/18 23:00 05/13/18 00:00 Temperature 97.9 F Pulse Rate 92 H 93 H 92 H Respiratory Rate 16 Blood Pressure 103/67 Pulse Oximetry 95 05/13/18 01:00 05/13/18 02:00 05/13/18 03:00 Temperature 98.1 F Pulse Rate 93 H 92 H 92 H Respiratory Rate 16 Blood Pressure 98/69 L Pulse Oximetry 97 05/13/18 04:00 05/13/18 05:00 05/13/18 06:00 Temperature Pulse Rate 92 H 91 H 92 H Respiratory Rate Blood Pressure Pulse Oximetry Intake & Output 05/12/18 05/13/18 05/13/18 18:59 06:59 18:59 Intake Total 2022.1 / 2022.1 240 / 240 Output Total 350 / 350 750 / 750 Balance 1672.1 / 1672.1 -510 / -510 Weight 102 kg 101 kg Intake: IV 1062.1 / 1062.1 NS Inj 1,000 ML @ 75 mls/hr IV. 937.1 / 937.1 CONT .[id number] [facility] Rx#:[id number] Cardizem Inj 125 MG In NS Inj 125 / 125 100 ML @ 5 MG/HR 5 mls/hr IV. CONT TITRATE PRN Rx#:[id number] Oral 960 / 960 240 / 240 Output: Urine 350 / 350 750 / 750 Other: Date of Last Bowel Movement 05/11/18 05/12/18 # Bowel Movements 0 # Incontinent Bowel Movements 0 Weight On Admission 101 kg Narrative: GENERAL: NAD, A&Ox3 HEAD: Normocephalic. NECK: Supple, trachea midline. No lymphadenopathy. EYES: No scleral icterus. No injection or drainage. CARDIOVASCULAR: regular rhythm HR 90s RESPIRATORY: Breath sounds equal bilaterally. No accessory muscle use. GASTROINTESTINAL: Abdomen soft, non-tender, nondistended. MUSCULOSKELETAL: No cyanosis, or edema. SKIN: Warm and dry. NEURO: No focal neurological deficits. Results - Labs CBC & Chem 7: 05/11/18 16:05 05/11/18 16:05 Assessment and Plan - Assessment (1) Atrial fibrillation with RVR Code(s): I48.91 - Unspecified atrial fibrillation Status: Acute - Plan 73-year-old male admitted secondary to A. fib RVR Rate controlled when seen. Recurrence of A. fib RVR with ambulation this morning (off of Cardizem at that time). A. fib RVR chronic atrial fibrillation- now in SR - per patient history of ablations in the past- ffs closely with Dr Megan Amanda Eliquis - in the past was on both CCB and BB- and was discontinued - nowback on Cardizem and sotalol - up and ambulating- HR in the Gastroesophageal reflux disease PPI - restart as OP DVT prophylaxis Eliquis Home today if cleared with Dr. Trevizo- OP ff up with him PCP ff up - dr. Soliz
--- NOTE | 2018-05-13 13:59 | ECG ---
Date Performed: 05/13/2018 Time Performed: 07:59:46 PTAGE: 73 years EKG: Sinus rhythm Normal ECG DOCTOR: Maribeth Larkin M.D. Interpretating Date/Time 05/13/2018 13:58:22
--- NOTE | 2018-05-13 14:12 | P.PNCA ---
Subjective Interval history: Patient is doing well today. He denies any chest pain, SOB , dizziness or rapid heart beat. He has been ambulating in the [place] with no difficulty. He was started on Sotalol yesterday. Telemetry reveals NSR HR 68-70s. Patient is anxious to go home. Discussed importance of being monitored on telemetry the first 48 hours after being started on sotalol due to risk for pro-athymias. Medications and Allergies Allergies Allergy/AdvReac Type Severity Reaction Status Date / Time No Known Allergies Allergy Verified 05/11/18 17:15 Home Medications Medication Instructions Recorded Confirmed Type apixaban [Eliquis] 5 mg PO BID 05/11/18 05/11/18 History omeprazole magnesium [Prilosec OTC] 20 mg PO DAILY 05/11/18 05/11/18 History Active Medications: Active Medications Al Hydroxide/Mg Hydroxide (Milk Of [place]) 30 ml PO Q12H PRN PRN Reason: Mild Constipation Apixaban (Eliquis) 5 mg PO BID [facility] Last Admin: 05/13/18 09:34 Dose: 5 mg Diltiazem HCl (Cardizem Cd 24hr) 120 mg PO DAILY [facility] Last Admin: 05/13/18 09:31 Dose: 120 mg Sodium Chloride (Ns Inj) 1,000 mls @ 75 mls/hr IV.CONT .[id number] [facility] Last Admin: 05/13/18 00:45 Dose: Not Given Nitroglycerin (Nitrostat Sl) 0.4 mg SL Q5M PRN PRN Reason: CHEST PAIN Ondansetron HCl (Zofran Inj) 4 mg IV.PUSH Q6H PRN PRN Reason: NAUSEA OR VOMITING Pantoprazole Sodium (Protonix) 20 mg PO BID [facility] Last Admin: 05/13/18 09:27 Dose: 20 mg Sodium Chloride (Ns Flush) 2 ml IV.FLUSH UNSCH PRN PRN Reason: FLUSH AFTER USING IV ACCESS Last Admin: 05/12/18 08:55 Dose: 2 ml Sotalol HCl (Betapace) 80 mg PO BID [facility] Last Admin: 05/13/18 09:29 Dose: 80 mg Physical Exam Vital signs: Vital Signs 05/12/18 15:00 05/12/18 15:28 05/12/18 16:00 Temperature Pulse Rate 136 H 126 H 126 H Respiratory Rate 16 Blood Pressure 107/63 Pulse Oximetry 97 05/12/18 17:00 05/12/18 17:46 05/12/18 18:00 Temperature Pulse Rate 93 H 92 H Respiratory Rate Blood Pressure Pulse Oximetry 97 05/12/18 19:00 05/12/18 20:00 05/12/18 21:00 Temperature 97.9 F Pulse Rate 94 H 90 91 H Respiratory Rate 16 Blood Pressure 106/68 Pulse Oximetry 96 96 05/12/18 22:00 05/12/18 23:00 05/13/18 00:00 Temperature 97.9 F Pulse Rate 92 H 93 H 92 H Respiratory Rate 16 Blood Pressure 103/67 Pulse Oximetry 95 05/13/18 01:00 05/13/18 02:00 05/13/18 03:00 Temperature 98.1 F Pulse Rate 93 H 92 H 92 H Respiratory Rate 16 Blood Pressure 98/69 L Pulse Oximetry 97 05/13/18 04:00 05/13/18 05:00 05/13/18 06:00 Temperature Pulse Rate 92 H 91 H 92 H Respiratory Rate Blood Pressure Pulse Oximetry Intake & Output 05/12/18 05/13/18 05/13/18 18:59 06:59 18:59 Intake Total 2022.1 / 2022.1 240 / 240 Output Total 350 / 350 750 / 750 Balance 1672.1 / 1672.1 -510 / -510 Weight 102 kg 101 kg Intake: IV 1062.1 / 1062.1 NS Inj 1,000 ML @ 75 mls/hr IV. 937.1 / 937.1 CONT .[id number] [facility] Rx#:[id number] Cardizem Inj 125 MG In NS Inj 125 / 125 100 ML @ 5 MG/HR 5 mls/hr IV. CONT TITRATE PRN Rx#:[id number] Oral 960 / 960 240 / 240 Output: Urine 350 / 350 750 / 750 Other: Date of Last Bowel Movement 05/11/18 05/12/18 # Bowel Movements 0 # Incontinent Bowel Movements 0 Weight On Admission 101 kg - Constitutional no acute distress, average body habitus - Routine HEENT Exam Head: Present: normocephalic, atraumatic Eye: Present: PERRL, normal accommodation ENT: Present: mucous membranes moist - Routine Neck Exam Present: supple, trachea midline - Routine Respiratory Exam Present: CTA bilaterally - Routine Cardiovascular Exam Present: RRR - Routine Abdominal Exam Present: soft - Routine Skin Exam Present: intact - Routine Neurological Exam Present: alert, oriented X3 - Detailed Neurological Exam: Coma Scale Eye Opening: Spontaneous Verbal Response: Oriented Motor Response: Obey commands Nicole Coma Scale Total: 15 - Routine Psychiatric Exam Present: normal affect Results 05/11/18 16:05 05/11/18 16:05 Cardiac Enzymes 05/11/18 05/11/18 05/12/18 Range/Units 16:05 22:13 03:47 AST 19 (15-37) U/L Troponin I 0.14 H 0.21 H 0.20 H (0.02-0.05) ng/mL Coagulation 05/11/18 Range/Units 16:05 PT 11.1 (9.8-11.6) sec APTT 29.1 (24.3-30.1) sec CBC 05/11/18 Range/Units 16:05 WBC 7.9 (4.0-11.0) th/mm3 RBC 5.49 (4.50-5.90) mil/mm3 Hgb 15.6 (13.0-17.0) gm/dL Hct 47.1 (39.0-51.0) % Plt Count 190 (150-450) th/mm3 Neut # (Auto) 4.5 (1.8-7.7) th/mm3 Lymph # (Auto) 2.5 (1.0-4.8) th/mm3 [place] # (Auto) 0.8 (0.0-0.9) th/mm3 Eos # (Auto) 0.1 (0.0-0.4) th/mm3 Baso # (Auto) 0.0 (0.0-0.2) th/mm3 Comprehensive Metabolic Panel 05/11/18 Range/Units 16:05 Sodium 138 (136-145) meq/L Potassium 4.0 (3.5-5.1) meq/L Chloride 105 (98-107) meq/L Carbon Dioxide 26.2 (21.0-32.0) meq/L BUN 13 (7-18) mg/dL Creatinine 1.02 (0.60-1.30) mg/dL Calcium 8.6 (8.5-10.1) mg/dL AST 19 (15-37) U/L ALT 22 (12-78) U/L Alkaline Phosphatase 94 (45-117) U/L Total Protein 7.0 (6.4-8.2) g/dL Albumin 3.6 (3.4-5.0) g/dL Intake and Output 05/12/18 05/13/18 05/13/18 22:59 06:59 14:59 Intake Total 960 / 960 240 / 240 Output Total 350 / 350 750 / 750 Balance 610 / 610 -510 / -510 Intake: Oral 960 / 960 240 / 240 Output: Urine 350 / 350 750 / 750 Other: Date of Last Bowel Movement 05/12/18 05/12/18 # Bowel Movements 0 # Incontinent Bowel Movements 0 Weight 102 kg 101 kg Weight On Admission 101 kg - Imaging and Cardiology Imaging: Impressions Chest X-Ray 05/11/18 16:05 CONCLUSION: 1. No acute intrathoracic abnormality. 2. Old right posterior fourth rib fracture. Assessment and Plan - Plan Assessment Afib RVR Plan Currently in SR, rate controlled. Will control rhythm with sotalol. Will watch for proarrhythmia. Continues on eliquis, no issues with bleeding. The patient was seen and evaluated by Dr. Trevizo who participated in care management and decision making The exam, history, and the medical decision-making described in the above note were completed with the assistance of the mid-level provider. I reviewed and agree with the findings presented. I attest that I had a [id number] encounter with the patient on the same day, and personally performed and documented my assessment and findings in the medical record.Doing better watch for proarrhythmia on Sotalol. Code Status: Full Code Discussed Condition With: Patient, and RN
--- NOTE | 2018-05-13 15:52 | P.DIET ---
Nutritional Evaluation Type of nutrition evaluation: initial Nutrition consult regarding: Diet Evaluation Nutrition screening: Weight Loss > 10 lbs Subjective Subjective Comments: Pt reports a good appetite and had wt loss per chart. Per chart, pt had a variable PO intake on 05/12 (100% breakfast, 25% lunch, 100% dinner). Will continue to assess need for PO supplement. Objective - Diagnosis AFIB, RVR, elevated troponin - Objective [place] body weight: 73 kg % IBW: 139 Body Weight Used for Calculations: IBW, Actual Energy Needs - Lower Range (kCal/kg): 22 Energy Needs - Upper Range (kCal/kg): 27 Lower Limit kCal/kg (kCals): 1,600 Upper Limit kCal/kg (kCals): 1,963 Lower Limit Protein Factor (Grams per Kg): 1.1 Upper Limit Protein Factor (Grams per Kg): 1.3 Lower Protein Needs (Protein): 80 Upper Protein Needs (Protein): 95 Dietitian Reviewed in Medical Record: Current diet, Curent medications, Intake & Output, Labs, Medical history Oral Diet Intake Amount: Good 75-90% Speech Therapy Recommendations: No Objective Comments: PMH include: AFIB, fluttering heart, tachycardia Labs include: (05/12) GFR: 72, Troponin 0.20 Medications include: milk of mag, eliquis, cardizem, nitrostat, protonix, zofran , sotalol Assessment Assessment: Pt at nutritional risk relative to reported unintentional wt loss. Pt tolerating current diet with variable PO intake. Will assess pts nutritional needs for a PO supplement as appropriate. Labs reviewed. Dietitian following. Recommendations: 1. Continue to monitor any wt loss 2. Monitor PO intake 3. Will assess pts nutritional needs for a PO supplement as appropriate 4. Dietitian following Dietitian to Monitor: Lab values, Intake & Output, Diet tolerance, Weight change , PO Intake, Medical course
--- NOTE | 2018-05-13 20:46 | ECG ---
Date Performed: 05/12/2018 Time Performed: 11:24:58 PTAGE: 73 years EKG: Sinus rhythm with bigeminal PACs. When compared to previous tracing, sinus rhtyhm with bigeminal Premature atrial contractions is new. Abnormal ECG PREVIOUS TRACING : 05/12/2018 04.30.24 DOCTOR: Thang Rodarte Interpretating Date/Time 05/13/2018 20:44:58
--- NOTE | 2018-05-13 20:48 | ECG ---
Date Performed: 05/12/2018 Time Performed: 21:50:28 PTAGE: 73 years EKG: Sinus rhythm Septal T wave changes are nonspecific When compared to previous tracing, freqent premature atrial Co ntractions have resolved. Borderline ECG PREVIOUS TRACING : 05/12/2018 11.24.56 DOCTOR: Thang Rodarte Interpretating Date/Time 05/13/2018 20:47:07
[2018-05-14] MEDS: Sod Chloride 0.9% Inj 1,000 ML IV.CONT SCH (01:34)
[2018-05-14 06:28] VITALS: O2SAT 97
[2018-05-14 08:22] VITALS: BP 119/67; RESP 16; TEMP 97.8
[2018-05-14] MEDS: dilTIAZem CD 120 MG Capsule PO SCH (08:53)
[2018-05-14] MEDS: Pantoprazole Sodium 20 MG DR Tablet PO SCH (08:53)
--- NOTE | 2018-05-14 10:02 | P.DS ---
Date of admission: 05/11/18 17:20 Primary care physician: Deandre Soliz MD, PhD Brief History from admission: HPI from the admitting physician: Mr. Bonilla is a 73-year-old male. He has a past history of multiple episodes of A. fib RVR. He has had approximately 7 ablations in the past. He says the most recent ablation was working well but this morning he noticed some tachycardia symptoms which for him is just a flutter. No shortness of breath, no chest pain, no dizziness. He checked his pulse and it was rapid going from 160-180. He denies any nausea vomiting or chest pain. Cardizem is provided in the ER via a bolus and this only worked temporarily. Cardizem drip is being initiated. No other complaints from the patient tonight. Patient update on day of discharge: Patient reports he is feeling great. No chest pain or shortness of breath. No heart palpitations. Rate is controlled. DS: Diagnosis - Discharge Diagnosis (1) Atrial fibrillation with RVR Status: Acute DS: Medications - Discharge Medications Prescriptions: diltiazem HCl 120 mg PO DAILY 30 Days #30 cap sotalol [Sorine] 80 mg PO BID 30 Days #60 tab DS: Summary Hospital Course: 73-year-old male admitted secondary to A. fib RVR. The patient was admitted and treated with Cardizem drip. He was followed by Cardiology. His Cardizem drip discontinued due to low blood pressures. He had converted to sinus rhythm, but went back to Afib with RVR with activities. He was started on Sotalol and Cardizem. Rate controlled. He is to continue on Eliquis. He will follow up outpatient with Cardiology. - Time Spent with Patient Total time spent providing and/or coordinating discharge services: Less than 30 minutes - Quality: VTE Deep Vein Thrombosis/Pulmonary Embolism Present on Admission: No Exam Vital signs: Vital Signs 05/13/18 11:00 05/13/18 14:33 05/13/18 15:00 Temperature 97.9 F 97.9 F Pulse Rate 96 H 96 H Respiratory Rate 18 18 Blood Pressure 94/64 L 87/55 L Pulse Oximetry 97 05/13/18 16:00 05/13/18 17:00 05/13/18 18:00 Temperature Pulse Rate 62 74 93 H Respiratory Rate Blood Pressure Pulse Oximetry 05/13/18 19:00 05/13/18 20:00 05/13/18 20:53 Temperature 98.2 F Pulse Rate 95 H 94 H Respiratory Rate 14 Blood Pressure 99/63 L Pulse Oximetry 100 93 L 05/13/18 21:00 05/13/18 22:00 05/13/18 23:00 Temperature 98.6 F Pulse Rate 94 H 88 87 Respiratory Rate 14 Blood Pressure 102/66 Pulse Oximetry 98 05/14/18 00:00 05/14/18 01:32 05/14/18 03:00 Temperature Pulse Rate 92 H 74 94 H Respiratory Rate 14 Blood Pressure 104/70 Pulse Oximetry 97 05/14/18 06:00 05/14/18 07:00 05/14/18 08:00 Temperature 97.8 F Pulse Rate 84 90 85 Respiratory Rate 16 Blood Pressure 119/67 Pulse Oximetry 97 97 Intake & Output 05/13/18 05/14/18 05/14/18 18:59 06:59 18:59 Intake Total 960 / 960 240 / 240 Output Total 870 / 870 950 / 950 Balance 90 / 90 -710 / -710 Weight 101 kg Intake: Oral 960 / 960 240 / 240 Output: Urine 870 / 870 950 / 950 Other: Date of Last Bowel Movement 05/13/18 05/13/18 05/13/18 # Bowel Movements 1 1 Narrative: GENERAL: No acute distress SKIN: Warm and dry. HEAD: Normocephalic. EYES: No scleral icterus. No injection or drainage. NECK: Supple, trachea midline. No JVD or lymphadenopathy. CARDIOVASCULAR: normal rate and irregular rhythm without murmurs, gallops, or rubs. RESPIRATORY: Breath sounds equal bilaterally. No accessory muscle use. GASTROINTESTINAL: Abdomen soft, non-tender, nondistended. Results Procedures completed during hospitalization: None - Impressions ITS Impressions Chest X-Ray 05/11/18 16:05 CONCLUSION: 1. No acute intrathoracic abnormality. 2. Old right posterior fourth rib fracture. Discharge Plan - Discharge Disposition Patient Disposition: Discharge Home - Discharge Condition Condition: Stable - Discharge Order Discharge Orders: Discharge Order (Routine); Ordered 05/14/18 Ordered By: Fernando Molina Cardiology Clear for Discharge (Routine); Ordered 05/14/18 Ordered By: October Danyel - Discharge Details Anticipated Discharge Date: 05/13/18 - Physicians Team Primary Care Provider: Deandre Soliz Attending Provider: Fernando Molina Other Providers: Carlitos Trevizo MD
--- NOTE | 2018-05-14 10:14 | P.PNCA ---
Subjective Interval history: Patient sitting up in bed doing well. Denies any complaints overnight. Ready to go home. Telemetry reveals Afib, rate is controlled in the 80s. Will plan to DC home on eliquis, sotalol and cardizem. Medications and Allergies Active Medications: Active Medications Al Hydroxide/Mg Hydroxide (Milk Of Magnkavon Liq) 30 ml PO Q12H PRN PRN Reason: Mild Constipation Apixaban (Eliquis) 5 mg PO BID [facility] Last Admin: 05/14/18 08:53 Dose: 5 mg Diltiazem HCl (Cardizem Cd 24hr) 120 mg PO DAILY [facility] Last Admin: 05/14/18 08:53 Dose: 120 mg Sodium Chloride (Ns Inj) 1,000 mls @ 75 mls/hr IV.CONT .[id number] [facility] Last Admin: 05/14/18 01:34 Dose: Not Given Nitroglycerin (Nitrostat Sl) 0.4 mg SL Q5M PRN PRN Reason: CHEST PAIN Ondansetron HCl (Zofran Inj) 4 mg IV.PUSH Q6H PRN PRN Reason: NAUSEA OR VOMITING Pantoprazole Sodium (Protonix) 20 mg PO BID [facility] Last Admin: 05/14/18 08:53 Dose: 20 mg Sodium Chloride (Ns Flush) 2 ml IV.FLUSH UNSCH PRN PRN Reason: FLUSH AFTER USING IV ACCESS Last Admin: 05/12/18 08:55 Dose: 2 ml Sotalol HCl (Betapace) 80 mg PO BID [facility] Last Admin: 05/14/18 08:52 Dose: 80 mg Allergies Allergy/AdvReac Type Severity Reaction Status Date / Time No Known Allergies Allergy Verified 05/11/18 17:15 Home Medications Medication Instructions Recorded Confirmed Type apixaban [Eliquis] 5 mg PO BID 05/11/18 05/11/18 History omeprazole magnesium [Prilosec OTC] 20 mg PO DAILY 05/11/18 05/11/18 History Physical Exam Vital signs: Vital Signs 05/13/18 11:00 05/13/18 14:33 05/13/18 15:00 Temperature 97.9 F 97.9 F Pulse Rate 96 H 96 H Respiratory Rate 18 18 Blood Pressure 94/64 L 87/55 L Pulse Oximetry 97 05/13/18 16:00 05/13/18 17:00 05/13/18 18:00 Temperature Pulse Rate 62 74 93 H Respiratory Rate Blood Pressure Pulse Oximetry 05/13/18 19:00 05/13/18 20:00 05/13/18 20:53 Temperature 98.2 F Pulse Rate 95 H 94 H Respiratory Rate 14 Blood Pressure 99/63 L Pulse Oximetry 100 93 L 05/13/18 21:00 05/13/18 22:00 05/13/18 23:00 Temperature 98.6 F Pulse Rate 94 H 88 87 Respiratory Rate 14 Blood Pressure 102/66 Pulse Oximetry 98 05/14/18 00:00 05/14/18 01:32 05/14/18 03:00 Temperature Pulse Rate 92 H 74 94 H Respiratory Rate 14 Blood Pressure 104/70 Pulse Oximetry 97 05/14/18 06:00 05/14/18 07:00 05/14/18 08:00 Temperature 97.8 F Pulse Rate 84 90 85 Respiratory Rate 16 Blood Pressure 119/67 Pulse Oximetry 97 97 Intake & Output 05/13/18 05/14/18 05/14/18 18:59 06:59 18:59 Intake Total 960 / 960 240 / 240 Output Total 870 / 870 950 / 950 Balance 90 / 90 -710 / -710 Weight 101 kg Intake: Oral 960 / 960 240 / 240 Output: Urine 870 / 870 950 / 950 Other: Date of Last Bowel Movement 05/13/18 05/13/18 05/13/18 # Bowel Movements 1 1 - Constitutional no acute distress, average body habitus - Routine HEENT Exam Head: Present: normocephalic, atraumatic Eye: Present: PERRL, normal accommodation ENT: Present: mucous membranes moist - Routine Neck Exam Present: supple, trachea midline - Routine Respiratory Exam Present: CTA bilaterally - Routine Cardiovascular Exam Present: irregularly irregular - Routine Abdominal Exam Present: soft - Routine Skin Exam Present: intact - Routine Neurological Exam Present: alert, oriented X3 - Detailed Neurological Exam: Coma Scale Eye Opening: Spontaneous Verbal Response: Oriented Motor Response: Obey commands Ford Coma Scale Total: 15 - Routine Psychiatric Exam Present: normal affect Results 05/11/18 16:05 05/11/18 16:05 Intake and Output 05/13/18 05/14/18 05/14/18 22:59 06:59 14:59 Intake Total 960 / 960 240 / 240 Output Total 870 / 870 950 / 950 Balance 90 / 90 -710 / -710 Intake: Oral 960 / 960 240 / 240 Output: Urine 870 / 870 950 / 950 Other: Date of Last Bowel Movement 05/12/18 05/13/18 05/13/18 # Bowel Movements 1 1 Weight 101 kg Assessment and Plan - Plan Assessment Afib RVR Plan Rate controlled with Sotalol and cardizem. Will plan to DC home on Eliquis, Sotalol and Cardizem with a plan to follow up in office in 1-2 weeks. The patient was seen and evaluated by Dr. Trevizo who participated in care management and decision making Code Status: Full Code Discussed Condition With: Dr. Molina and RN
[2018-05-14 10:42] VITALS: PULSE 90
--- NOTE | 2018-05-15 17:45 | ECG ---
Date Performed: 05/14/2018 Time Performed: 10:20:16 PTAGE: 73 years EKG: Atrial fibrillation with controlled ventricular response Compared to previous tracing, ther e is a rhythm change from Sinus rhythm to atrial fibrillation. Clinical correlation is recommended Abnormal ECG PREVIOUS TRACING : 05/13/2018 07.59 DOCTOR: Shahzad James Interpretating Date/Time 05/15/2018 17:44:13
== END 2018-05-14 11:16 | disposition home or self-care (01) ==
LOC: NEPC 15:25 → NEDA 17:20 → HCPC 20:29
PROVIDERS: ADMIT Family Medicine; ATTEND Family Medicine